=== PATIENT | male | born 1975 ===

== ENCOUNTER 2017-09-15 13:44 | Emergency (ER) | payer SELFPAY ==
[2017-09-15 14:01] VITALS: BMI 31.4
--- NOTE | 2017-09-15 14:08 | C.PDOC ---
History Of Present Illness 42 year old male presents to the emergency department requesting a check-up for bilateral knee pain and bilateral elbow pain which has been ongoing for the past three months. Patient reports that his current symptoms are unchanged from usual, and that he only requests a check-up. Patient states he is able to move his joints without difficulty. Time Seen by Provider: 09/15/17 14:04 Chief Complaint (Nursing): Lower Extremity Problem/Injury History Per: Patient History/Exam Limitations: no limitations Onset/Duration Of Symptoms: Other (three months) Current Symptoms Are (Timing): Still Present Location: Bilateral knees, bilateral elbows Past Medical History Reviewed: Historical Data, Nursing Documentation, Vital Signs Vital Signs: Last Vital Signs Temp 98.1 F 09/15/17 14:01 Pulse 63 09/15/17 14:01 Resp 18 09/15/17 14:01 BP 118/70 09/15/17 14:01 Pulse Ox 99 09/15/17 14:07 - Medical History PMH: No Chronic Diseases Surgical History: No Surg Hx Family History: States: No Known Family Hx - Social History Hx Alcohol Use: No Hx Substance Use: No Review Of Systems Except As Marked, All Systems Reviewed And Found Negative. Musculoskeletal: Positive for: Arm Pain, Leg Pain Physical Exam - Physical Exam Appears: Non-toxic, No Acute Distress Skin: Warm, Dry Head: Atraumatic, Normacephalic Eye(s): bilateral: Normal Inspection Nose: Normal Neck: Normal Chest: Symmetrical Cardiovascular: Rhythm Regular Extremity: Normal ROM (bilateral knees and elbows), No Tenderness Extremity: Bilateral: Atraumatic Neurological/Psych: Oriented x3, Normal Speech, Normal Cognition, Other (no focal deficits) ED Course And Treatment O2 Sat by Pulse Oximetry: 99 (RA) Pulse Ox Interpretation: Normal Progress Note: Patient requested to follow-up with clinic. Disposition Counseled Patient/Family Regarding: Diagnosis, Need For Followup - Disposition Referrals: [facility] [Outside] [facility] [Outside] Disposition: HOME/ ROUTINE Disposition Time: 14:06 Condition: GOOD Additional Instructions: TOME MOTRIN / TYLENOL SEGN LO INDICA. SEGUIMIENTO EN CLNICA Instructions: Osteoarthritis (DC) Forms: [employer] (Yoruba) Print Language: MAORI - Clinical Impression Clinical Impression: Arthralgia - Scribe Statement The provider has reviewed the documentation as recorded by the Scribe (Puneet Cat) Provider Attestation: All medical record entries made by the Scribe were at my direction and personally dictated by me. I have reviewed the chart and agree that the record accurately reflects my personal performance of the history, physical exam, medical decision making, and the department course for this patient. I have also personally directed, reviewed, and agree with the discharge instructions and disposition.
[2017-09-15 14:15] VITALS: BP 118/70; PULSE 63; RESP 18; TEMP 98.1; O2SAT 99
== END 2017-09-15 14:19 | disposition home or self-care (01) ==
LOC: C.ER 13:44
DX: M25.562 Pain in left knee (principal); M25.561 Pain in right knee; M25.522 Pain in left elbow; M25.521 Pain in right elbow